=== PATIENT | male | born 1965 | race Caucasian/White ===

== ENCOUNTER 2024-04-14 13:57 | Emergency (ER) | payer OTHER, SELFPAY ==
--- NOTE | ~2024-04-14 | XR_ITS ---
EXAMINATION: XR finger 1st RT min 2V DATE: 04/14/2024 14:34 INDICATION: Smashing injury at the right first interphalangeal joint TECHNIQUE: Dorsal palmar, lateral and 2 oblique views of the right first digit were obtained COMPARISON: None FINDINGS: Bone alignment is normal. There is a subtle linear lucency projecting across the radial side of the b ase of the first distal phalanx evident on only one projection equivocal for nondisplaced intra-artic ular fracture. No other lesions suspicious for fracture identified. Polyarticular osteoarthritis, mod erate severity at the triscaphe joint and mild at the first carpometacarpal, metacarpophalangeal and interphalangeal joints. Soft tissues are unremarkable. IMPRESSION: 1. Possible nondisplaced intra-articular fracture at the radial side of the base of the first distal phalanx. Reviewed, dictated and finalized at location B. IMPRESSION: 1. Possible nondisplaced intra-articular fracture at the radial side of the bas e of the first distal phalanx.
[2024-04-14 14:06] VITALS: BP 154/67; PULSE 103; RESP 16; TEMP 37.2; O2SAT 99
--- NOTE | 2024-04-14 19:36 | ED.UPPEXIN ---
HPI - Extremity Injury (Upper) General Chief Complaint: Extremity Injury, Upper Stated Complaint: Rt Thumb Smashed Time Seen by Provider: 04/14/24 14:19 Source: patient, RN notes reviewed and old records reviewed Mode of arrival: ambulatory Limitations: no limitations History of Present Illness HPI narrative: 58-year-old male to [facility] for complaint right thumb pain. Patient reports that he works in construction and that yesterday he accidentally smashed his right thumb between a pry bar and plywood. Patient reports treating at home with ice and naproxen however states increased pain and swelling. Patient denies numbness, tingling, prior injury, allergies, pertinent medical history. Patient endorsing limited ROM at distal Joint. Patient resting comfortably in exam room in no acute distress. Respirations even and nonlabored. Related Data Home Medications Medication Instructions Recorded Confirmed amlodipine 10 mg tablet 10 mg DAILY 04/14/24 04/14/24 losartan 100 mg tablet 100 mg DAILY 04/14/24 04/14/24 naproxen 500 mg tablet 500 mg BID 04/14/24 04/14/24 sertraline 100 mg tablet 100 mg DAILY 04/14/24 04/14/24 Allergies Allergy/AdvReac Type Severity Reaction Status Date / Time No Known Allergies Allergy Verified 04/14/24 14:33 Review of Systems Review of Systems: All systems reviewed & are unremarkable except as noted in HPI and below Constitutional: Constitutional: Reports no additional constitutional complaints Eyes: Eyes: Reports no additional eye complaints ENT: Reports system reviewed and no additional complaints, except as documented Cardiovascular: Cardiovascular: Reports no additional cardiovascular complaints, Denies chest pain and Denies dyspnea Respiratory: Respiratory: Reports no additional respiratory complaints, Denies cough and Denies dyspnea Musculoskeletal: Musculoskeletal: Reports as per HPI, Reports arthralgias and Reports joint swelling Comments: Right thumb Neurologic: Reports system reviewed and no additional complaints, except as documented Psychiatric: Psychiatric: Reports no additional psychiatric complaints PMFSH Comments At the time of my signature, I reviewed and agree with the nursing past medical, surgical, social, and family history. There is no relevant family history pertinent to the patient complaint. Exam Const: General: cooperative, healthy appearing, no acute distress, alert and well nourished Nutritional Appearance: well nourished Orientation/consciousness: patient oriented x3 Limitations: no limitations HENMT: Head: normal to inspection Ears: external ears normal Face/Nose/Sinus: Normal external nose present, Normal nares present, normal facial exam, No erythema and No edema Face and sinus: normal facial exam, no erythema and no edema Eyes: General: appearance normal, both eyes and all related structures Neck: Neck: normal visual inspection, full ROM and no meningeal signs Chest: Chest palpation & inspection: normal inspection of the chest Resp: Effort & Inspection: normal respiratory effort and able to speak in complete sentences Cardio: Jugular venous distension: no JVD Rate: regular rate Rhythm: regular rhythm Back/Spine/Pelvis: Cervical Spine: cervical ROM normal Skin: General skin exam: normal color, no rashes or lesions noted and turgor normal Neuro: General: patient oriented x3, gait normal, moves all extremities and no meningeal signs Speech: normal speech Gait exam (Neuro): Normal gait present Extrem: Right upper extremity: edema and Extremity exam: right hand abnormal to inspection joint swelling ( right thumb); no deformity, neurosensory exam normal, tenderness of the thumb at the proximal phalanx and vascular exam radial pulse present, ulnar pulse present and normal capillary refill; not cool and no cyanosis; no cyanosis Psych: Appearance: grossly normal and well kempt Course Course Emergency Course: Some parts of thi
== END 2024-04-14 15:09 | disposition home or self-care (01) ==
PROVIDERS: Emergency Provider Nurse Practitioner Family; PCP Internal Medicine
DX: S62.524A Nondisplaced fracture of distal phalanx of right thumb, initial encounter for closed fracture (principal); X58.XXXA Exposure to other specified factors, initial encounter
CPT/HCPCS: 29130; 73140; 99204; G0463